=== PATIENT | male | born 1990 | race Caucasian/White ===

== ENCOUNTER 2019-09-10 18:21 | Emergency (ER) | payer OTHER ==
[~2019-09-10] VITALS: Ht 162.6 cm; Wt 61.7 kg
[2019-09-10 18:21] VITALS: BP_SYST 116
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
--- NOTE | 2019-09-10 19:41 | NUR ---
Patient to ER bed 2 for evaluation. Side rails up.
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
--- NOTE | 2019-09-10 19:48 | NUR ---
ER Dr. Kay at bedside examining patient.
--- NOTE | 2019-09-10 20:10 | NUR ---
Patient transported to radiology via wheelchair, accompanied by rad staff.
[2019-09-10] MEDS ORDERED: CYCLOBENZAPRINE HCL 10 MG TABLET (FLEXERIL) PO ONE (20:15)
[2019-09-10] MEDS ORDERED: IBUPROFEN 600 MG TABLET PO ONE (20:15)
--- NOTE | 2019-09-10 20:20 | NUR ---
Florian patrick in ED - 09/10/19 at 2024 by [email or web address] Pt is resting
--- NOTE | 2019-09-10 20:20 | NUR ---
Pt returned in stable condition
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
[2019-09-10 21:20] VITALS: BP_SYST 116
--- NOTE | 2019-09-10 21:21 | NUR ---
Patient given written and verbal discharge instructions and verbalizes understanding. ER MD discussed with patient the results and treatment provided. Patient in stable condition. ID arm band removed. Rx of Flexeril and Naprosyn given. Patient educated on pain management and to follow up with PMD. Pain Scale 0. Opportunity for questions provided and answered. Medication side effect fact sheet provided.
== END 2019-09-10 21:20 | disposition home or self-care (01) ==
LOC: SED 18:21
DX: M54.2 Cervicalgia (principal); M54.9 Dorsalgia, unspecified; M25.522 Pain in left elbow; F17.210 Nicotine dependence, cigarettes, uncomplicated; V43.52XA Car driver injured in collision with other type car in traffic accident, initial encounter; Y93.89 Activity, other specified; Y92.89 Other specified places as the place of occurrence of the external cause; Y99.8 Other external cause status
CPT/HCPCS: 71046-TC; 93005; 99283